=== PATIENT | female | born 1995 | race Caucasian/White ===

== ENCOUNTER → 2024-02-23 | Outpatient (CLI) | payer BC | LOC: RAD 14:40 | DX: S99.911A Unspecified injury of right ankle, initial encounter (principal) ==

== ENCOUNTER → 2024-09-01 | Outpatient (CLI) | payer BC ==
[2024-09-01 14:07] LABS: BASO # 0.03 K/mm3 (0.02-0.10); EOS # 0.11 K/mm3 (0.04-0.40); EOS % 1.7 % (1.0-5.0); HEMATOCRIT 42.2 % (37.0-47.0); LYMPH# 3.55 K/mm3 (1.50-4.00); MEAN CELL VOLUME 96 fl (78-100); MEAN CORPUSCULAR HEMOGLOBIN 32 pg (27-31); MEAN CORPUSCULAR HGB CONC 33 g/dL (33-37); MEAN PLATELET VOLUME 9.3 fl (7.4-10.4); MONO # 0.42 K/mm3 (0.20-0.80); NEU # 2.18 K/mm3 (1.40-6.50); PLATELET COUNT 277 K/mm3 (130-400); RED BLOOD COUNT 4.38 M/mm3 (4.10-5.30); RED CELL DISTRIBUTION WIDTH 12.2 % (11.5-14.5); WHITE BLOOD COUNT 6.3 K/mm3 (4.8-10.8)
[2024-09-01 14:12] LABS: ALBUMIN 4.7 g/dL (3.5-5.0); SODIUM 138 mmol/L (136-145)
[2024-09-01 14:15] LABS: GLUCOSE 92 mg/dL (65-105); TOTAL PROTEIN 8.2 g/dL (6.4-8.3)
[2024-09-01 14:16] LABS: CARBON DIOXIDE 22 mmol/L (22-29)
[2024-09-01 14:17] LABS: TOTAL BILIRUBIN 0.6 mg/dL (0.2-1.2)
[2024-09-01 14:21] LABS: ALT/SGPT 43 U/L (0-55)
[2024-09-01 14:50] LABS: AST-SGOT 33 U/L (5-34)
== END ==
LOC: LAB 13:46
PROVIDERS: Physician Assistant
DX: Z13.1 Encounter for screening for diabetes mellitus (principal); G62.9 Polyneuropathy, unspecified; K90.9 Intestinal malabsorption, unspecified; R53.83 Other fatigue; E78.5 Hyperlipidemia, unspecified

== ENCOUNTER → 2024-09-10 | Outpatient (CLI) | payer BC | LOC: LAB 17:31 | DX: K90.9 Intestinal malabsorption, unspecified (principal) ==